=== PATIENT | female | born 1980 | race African-American/Black ===

== ENCOUNTER 2021-07-17 08:09 | Outpatient (CLI) | payer BC | END 2021-07-17 08:10 | disposition home or self-care (01) | LOC: CSHMAMMO 08:09 | PROVIDERS: ATTEND Nurse Practitioner Women's Health | DX: Z12.31 Encounter for screening mammogram for malignant neoplasm of breast (principal) | CPT/HCPCS: 77063; 77067 ==

== ENCOUNTER 2021-07-26 21:12 | Emergency (ER) | payer BC ==
[2021-07-26] MEDS ORDERED: Ketorolac Tromethamine 30 MG/ML VIAL ONE (23:14)
== END 2021-07-26 23:17 | disposition home or self-care (01) ==
LOC: CSHERS 21:12
DX: M54.12 Radiculopathy, cervical region (principal)
CPT/HCPCS: 99283; J1885

== ENCOUNTER 2022-02-21 18:35 | Emergency (ER) | payer BC ==
[2022-02-21] MEDS ORDERED: Albuterol Sulfate 2.5 mg/3 ml Neb ONE (20:38)
== END 2022-02-21 19:20 | disposition home or self-care (01) ==
LOC: CSHERS 18:35
DX: U07.1 COVID-19 (principal)
CPT/HCPCS: 87804; 99283; J7611; U0003; U0005

== ENCOUNTER 2022-05-17 22:28 | Emergency (ER) | payer BC, SELFPAY | END 2022-05-18 00:47 | disposition home or self-care (01) | LOC: CSHERS 22:28 | DX: S93.402A Sprain of unspecified ligament of left ankle, initial encounter (principal); X50.9XXA Other and unspecified overexertion or strenuous movements or postures, initial encounter ==

== ENCOUNTER 2022-05-28 15:31 | Emergency (ER) | payer BC, SELFPAY | END 2022-05-28 17:49 | disposition home or self-care (01) | LOC: CSHERS 15:31 | DX: S93.402A Sprain of unspecified ligament of left ankle, initial encounter (principal); X50.1XXA Overexertion from prolonged static or awkward postures, initial encounter ==

== ENCOUNTER 2023-07-31 18:44 | Emergency (ER) | payer BC, SELFPAY | END 2023-07-31 20:40 | disposition home or self-care (01) | LOC: CSHERS 18:44 | DX: J02.9 Acute pharyngitis, unspecified (principal); I10 Essential (primary) hypertension | CPT/HCPCS: 87081; 87430; 99283 ==